=== PATIENT | female | born 1980 | race African-American/Black ===

== ENCOUNTER 2018-07-30 09:03 | Emergency (ER) | payer OTHER ==
[2018-07-30 09:11] VITALS: PULSE 106; TEMP 98.6; BMI 31.6
[2018-07-30 09:29] VITALS: BP 153/97
[2018-07-30] MEDS ORDERED: NAPROXEN 500 MG TABLET (FP) PO ONE (09:30)
--- NOTE | 2018-07-30 09:34 | PDOC ---
History of Present Illness - General Chief Complaint: Pain Stated Complaint: COUGH Time Seen by Provider: 07/30/18 09:29 History Source: Patient Exam Limitations: No Limitations - History of Present Illness Initial Comments: 07/30/18 09:45 Here with complaints of severe right wrist pain. 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 States tried using Tylenol and ice packs for pain relief but has progressively gotten worse. No history of trauma, falls, or any history of sore tendinitis. Also states complaints of cough means "I need to quit smoking" Occurred: reports: last week Severity: reports: moderate, severe Pain Location: reports: upper extremity (right wrist ) Method of Injury: Yes: unknown Modifying Factors: improves with: cold therapy, pain medication Loss of Consciousness: no loss of consciousness Associated Symptoms (Fall): denies symptoms Past History - Travel Traveled outside of the country in the last 30 days: No Close contact w/someone who was outside of country & ill: No - Past Medical History Allergies/Adverse Reactions: Allergies Allergy/AdvReac Type Severity Reaction Status Date / Time No Known Drug Allergies Allergy Verified 07/30/18 09:10 Home Medications: Ambulatory Orders Acetaminophen [Tylenol] 650 mg PO QID PRN 07/30/18 Naproxen [Naprosyn -] 500 mg PO BID #30 tablet 07/30/18 Anemia: No Asthma: No Cancer: No Cardiac Disorders: No CVA: No COPD: No CHF: No Dementia: No Diabetes: No GI Disorders: Yes (REFLUX) Disorders: No HTN: No Hypercholesterolemia: No Liver Disease: No Seizures: No Thyroid Disease: No - Surgical History Abdominal Surgery: No Appendectomy: No Cardiac Surgery: No Cholecystectomy: Yes Lung Surgery: No Neurologic Surgery: No Orthopedic Surgery: No - Suicide/Smoking/Psychosocial Hx Smoking History: Current every day smoker Have you smoked in the past 12 months: Yes Number of Cigarettes Smoked Daily: 10 Information on smoking cessation initiated: No 'Breaking Loose' booklet given: 02/09/14 Hx Alcohol Use: Yes (SOCIAL) Drug/Substance Use Hx: No Substance Use Type: Alcohol Hx Substance Use Treatment: No Trauma Specific PMHX - Complaint Specific PMHX Back Injury: No Neck Injury: No Review of Systems - Review of Systems Able to Perform ROS?: Yes Is the patient limited [place] proficient: Yes Constitutional: Yes: See HPI. No: Symptoms Reported, Fever, Malaise HEENTM: No: Symptoms Reported Respiratory: No: Symptoms reported Musculoskeletal: Yes: Symptoms Reported, See HPI, Joint Pain, Joint Swelling, Muscle Pain, Joint Stiffness Integumentary: Yes: Symptoms Reported, See HPI, Erythema Neurological: Yes: See HPI. No: Symptoms reported, Numbness, Tingling All Other Systems: Reviewed and Negative *Physical Exam - Vital Signs Last Vital Signs Temp Pulse Resp BP Pulse Ox 98.6 F 106 H 18 153/97 96 07/30/18 09:10 07/30/18 09:10 07/30/18 09:10 07/30/18 09:29 07/30/18 09:10 - Physical Exam General Appearance: Yes: Nourished, Appropriately Dressed, Apparent Distress, Mild Distress, Moderate Distress HEENT: positive: GILMER, Normal ENT Inspection, TMs Normal, Pharynx Normal Neck: positive: Tender Respiratory/Chest: positive: Lungs Clear Gastrointestinal/Abdominal: positive: Soft Musculoskeletal: negative: Vertebral Tenderness Extremity: positive: Normal Capillary Refill, Tender. negative: Normal Inspection, Normal Range of Motion (range of motion of very limited secondary to tenderness and swelling at wrist joint. Has mild erythema on the volar aspect of wrist with exquisite tenderness at the tendons running through carpal tunnel. Unable to flex and extend fingers, has no flexion and extension at wrist joint. Difficult to supinate and pronate due to pain at same. 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 Wrist immobilizer placed, given NSAIDs, and will follow-up with orthopedist if not significantly improved in the week *DC/Admit/Observation/Transfer Diagnosis at time of Disposition: Tendonitis - Discharge Dispostion Disposition: HOME Condition at time of disposition: Stable Decision to Admit order: No - Referrals Referrals: Antione Deshpande DO [Staff Physician] - - Patient Instructions Printed Discharge Instructions: DI for Tendinitis Additional Instructions: Rest, ice to area on and off for 15 minutes 4-6 times a day Avoid heavy lifting or exercise until pain and swelling is resolved or until further directed Keep area highly elevated to reduce swelling Use splints/Drake wrap as directed Followup with orthopedist in one to 2 days if not improving, if significantly improved may wait one week for followup with orthopedist May use ibuprofen 2-200 mg tablets every 6 hours as needed for pain - Post Discharge Activity Forms/Work/School Notes: Back to Work
[2018-07-30] MEDS ORDERED: NAPROXEN 500 MG TABLET (FP) ONE (09:43)
== END 2018-07-30 09:49 | disposition home or self-care (01) ==
LOC: JERFT 09:03
DX: M77.8 Other enthesopathies, not elsewhere classified (principal); X50.3XXA Overexertion from repetitive movements, initial encounter; Y93.89 Activity, other specified; Y92.59 Other trade areas as the place of occurrence of the external cause; Y99.0 Civilian activity done for income or pay
CPT/HCPCS: 99281-25